=== PATIENT | female | born 1955 | race Caucasian/White ===

== ENCOUNTER 2020-06-12 21:01 | Inpatient (IN) | payer MEDICAID, SELFPAY ==
[~2020-06-12] VITALS: Ht 165.1 cm; Wt 105.2 kg
[2020-06-12] MEDS ORDERED: ALBUTEROL (0.083%) 2.5MG/3ML NEB HHN STA (21:26)
[2020-06-12] MEDS ORDERED: IPRATROPIUM BROMIDE (0.02%) 0.5MG/2.5ML NEB HHN STA (21:26)
[2020-06-12] MEDS ORDERED: MAGNESIUM 2 G PREMIX 50 ML IV STA (21:26)
[2020-06-12] MEDS ORDERED: ACETAMINOPHEN 650MG SUPP PR STA (21:26)
[2020-06-12] MEDS ORDERED: PIPERACILLIN/TAZ 3.375G PREMIX 50 ML IV ONE (21:30)
[2020-06-12] MEDS ORDERED: VANCOMYCIN 1 G PREMIX 200 ML IV ONE (21:30)
[2020-06-12] MEDS ORDERED: DEXAMETHASONE 10 MG/ML VIAL IV ONE (21:30)
[2020-06-12 22:06] LABS: BASOPHILS % 0.3 % (0.0-2.0); HEMATOCRIT. 42.7 % (36.0-48.0); HEMOGLOBIN. 14.2 g/dL (12.0-16.0); MEAN CORPUSCULAR HEMOGLOBIN 29.3 pg (28.0-32.0); MEAN PLATELET VOLUME 8.7 fl (7.4-10.4); MONOCYTES % 5.8 % (2.0-8.0); NEUTROPHILS % 83.9 % (40.0-76.0); PLATELET 290 x1000/uL (130-400); RED BLOOD CELL COUNT 4.86 mill/uL (4.2-5.4)
[2020-06-12 22:13] LABS: CHLORIDE 112 mEq/L (98-107)
[2020-06-12 22:29] LABS: D-DIMER 1.84 mg/L FEU (<0.50); INR 0.9; PROTHROMBIN TIME 9.8 sec (9.6-11.0)
[2020-06-12 22:52] LABS: FIBRINOGEN > 850 mg/dL (200-400)
[2020-06-13] MEDS ORDERED: DOCUSATE SODIUM 100MG CAPSULE PO PRN (01:15)
[2020-06-13] MEDS ORDERED: ONDANSETRON HCL 4MG/2ML INJ IV PRN (01:15)
[2020-06-13] MEDS ORDERED: GUAIFENESIN 200MG/10ML SUGAR FREE UDC PO PRN (01:15)
[2020-06-13] MEDS ORDERED: MAGNESIUM/ALUMINUM HYDROXIDE/SIMETHICONE 30ML UDC PO PRN (01:15)
[2020-06-13] MEDS ORDERED: CLONIDINE 0.1MG TABLET PO PRN (01:15)
[2020-06-13 01:16] LABS: CLARITY URINE CLOUDY (CLEAR); COLOR URINE DARK YELLOW (YELLOW); KETONES URINE TRACE (NEGATIVE); LEUKOCYTE ESTERASE URINE NEGATIVE (NEGATIVE); NITRITE URINE NEGATIVE (NEGATIVE); OCCULT BLOOD URINE NEGATIVE (NEGATIVE); PROTEIN URINE 1+ (NEGATIVE); SPECIFIC GRAVITY URINE 1.037 (1.005-1.030)
[2020-06-13] MEDS ORDERED: AZITHROMYCIN 500 MG in DEXT 5% WATER 250 ML IV SCH (03:00)
[2020-06-13] MEDS: AMLODIPINE 10MG TABLET PO SCH (09:00)
[2020-06-13] MEDS: ENOXAPARIN 40MG/0.4ML SYR SUBCUT SCH (09:37)
[2020-06-13] MEDS: CEFTRIAXONE 1 G PREMIX 50 ML IV SCH (09:37)
[2020-06-13] MEDS: DEXAMETHASONE 10 MG/ML VIAL IV SCH (12:29)
[2020-06-13 13:15] LABS: BG BASE EXCESS 0.9 mmol/L (-2.0-2.0); BG CARBOXYHEMOGLOBIN 0.4 % (0.5-1.5); BG DEOXYHEMOGLOBIN 4.6 % (0.0-5.0); BG FRACTION INSPIRED OXYGEN 100; BG HCO3 ACT 24.1 mmol/L (22.0-26.0); BG METHEMOGLOBIN 0.1 % (0.0-1.5); BG OXYGEN SATURATION 95.4 % (92.0-98.5); BG OXYHEMOGLOBIN 94.9 % (94.0-97.0); BG PCO2 34.4 mmHg (35.0-45.0); BG PH 7.464 (7.350-7.450); BG PO2 73.9 mmHg (75.0-100.0); BG SAMPLE SITE RIGHT BRACHIAL; BG TOTAL HEMOGLOBIN 13.8 g/dL (12.0-18.0); BG VENT MODE MASK - BIPAP
[2020-06-13] MEDS: FAMOTIDINE 20MG TABLET PO SCH (20:49)
[2020-06-13] MEDS: DOXYCYCLINE HYCLATE 100MG CAPSULE PO SCH (23:16)
[2020-06-14] MEDS: ALBUTEROL 6.7GM HFA INHALER ORI SCH ×5 (02:30→17:03)
[2020-06-14 06:22] LABS: HEMATOCRIT. 39.1 % (36.0-48.0); HEMOGLOBIN. 13.1 g/dL (12.0-16.0); MEAN CORPUSCULAR HEMOGLOBIN 29.5 pg (28.0-32.0); MEAN CORPUSCULAR VOLUME 87.8 fL (81.0-99.0); MEAN PLATELET VOLUME 8.3 fl (7.4-10.4); PLATELET 212 x1000/uL (130-400); RED BLOOD CELL COUNT 4.45 mill/uL (4.2-5.4); RED CELL DISTRIBUTION WIDTH 14.9 % (11.6-14.6)
[2020-06-14 06:28] LABS: CHLORIDE 116 mEq/L (98-107)
[2020-06-14] MEDS: CEFTRIAXONE 1 G PREMIX 50 ML IV SCH (08:55)
[2020-06-14] MEDS: DEXAMETHASONE 10 MG/ML VIAL IV SCH (08:55)
[2020-06-14] MEDS: AMLODIPINE 10MG TABLET PO SCH (08:56)
[2020-06-14] MEDS: DOXYCYCLINE HYCLATE 100MG CAPSULE PO SCH ×2 (08:56→22:14)
[2020-06-14] MEDS: ENOXAPARIN 40MG/0.4ML SYR SUBCUT SCH (08:57)
[2020-06-14 10:09] LABS: PLATELET ESTIMATE NORMAL
[2020-06-14] MEDS: CHOLECALCIFEROL (D3) 1000 UNIT TABLET PO SCH (15:21)
[2020-06-14] MEDS: FAMOTIDINE 20MG TABLET PO SCH (22:14)
[2020-06-15] MEDS: CEFTRIAXONE 1 G PREMIX 50 ML IV SCH (08:57)
[2020-06-15] MEDS: DOXYCYCLINE HYCLATE 100MG CAPSULE PO SCH ×2 (09:00→22:10)
[2020-06-15] MEDS: CHOLECALCIFEROL (D3) 1000 UNIT TABLET PO SCH (09:00)
[2020-06-15] MEDS: AMLODIPINE 10MG TABLET PO SCH (09:00)
[2020-06-15] MEDS: DEXAMETHASONE 10 MG/ML VIAL IV SCH (09:02)
[2020-06-15] MEDS: ENOXAPARIN 40MG/0.4ML SYR SUBCUT SCH (09:57)
[2020-06-15] MEDS: FAMOTIDINE 20MG TABLET PO SCH (21:00)
[2020-06-15] MEDS: ALBUTEROL 6.7GM HFA INHALER ORI SCH ×2 (21:11)
[2020-06-16] VITALS (92 sets, daily range): BP systolic 89–167; BP diastolic 17–109
[2020-06-16] MEDS: ALBUTEROL 6.7GM HFA INHALER ORI SCH (01:04)
[2020-06-16 08:40] LABS: BG BASE EXCESS -0.9 mmol/L (-2.0-2.0); BG CARBOXYHEMOGLOBIN 1.3 % (0.5-1.5); BG DEOXYHEMOGLOBIN 14.1 % (0.0-5.0); BG HCO3 ACT 22.4 mmol/L (22.0-26.0); BG OXYGEN SATURATION 85.7 % (92.0-98.5); BG OXYHEMOGLOBIN 84.6 % (94.0-97.0); BG PCO2 33.1 mmHg (35.0-45.0); BG PH 7.448 (7.350-7.450); BG SAMPLE SITE RIGHT RADIAL; BG TOTAL HEMOGLOBIN 14.2 g/dL (12.0-18.0); BG VENT MODE MASK - BIPAP
[2020-06-16] MEDS: CEFTRIAXONE 1,000 MG in DEXTROSE 5% WATER 50 ML IV SCH (08:51)
[2020-06-16] MEDS: ENOXAPARIN 40MG/0.4ML SYR SUBCUT SCH (08:52)
[2020-06-16] MEDS: DEXAMETHASONE 10 MG/ML VIAL IV SCH (08:52)
[2020-06-16] MEDS: CHOLECALCIFEROL (D3) 1000 UNIT TABLET PO SCH (08:53)
[2020-06-16] MEDS: DOXYCYCLINE HYCLATE 100MG CAPSULE PO SCH ×2 (08:53→20:42)
[2020-06-16] MEDS: AMLODIPINE 10MG TABLET PO SCH (08:53)
[2020-06-16] MEDS ORDERED: ENOXAPARIN 60MG/0.6ML SYR SUBCUT NR (12:45)
[2020-06-16] MEDS: PROPOFOL 10MG/ML 100ML 100 ML IV PRN ×3 (15:30→20:42)
[2020-06-16] MEDS: FENTANYL CITRATE/PF 2,500 MCG in SODIUM CHLORIDE 0.9% 200 ML IV PRN (16:58)
[2020-06-16] MEDS: MIDAZOLAM HCL 100 MG in DEXT 5% WATER 80 ML IV PRN ×2 (16:59→23:25)
[2020-06-16 17:59] LABS: BG CARBOXYHEMOGLOBIN 1.1 % (0.5-1.5); BG DEOXYHEMOGLOBIN 30.7 % (0.0-5.0); BG HCO3 ACT 14.5 mmol/L (22.0-26.0); BG METHEMOGLOBIN 0.1 % (0.0-1.5); BG OXYGEN SATURATION 68.9 % (92.0-98.5); BG OXYHEMOGLOBIN 68.1 % (94.0-97.0); BG PCO2 28.4 mmHg (35.0-45.0); BG PH 7.326 (7.350-7.450); BG PO2 40.1 mmHg (75.0-100.0); BG SAMPLE SITE RIGHT RADIAL; BG TOTAL HEMOGLOBIN 13.1 g/dL (12.0-18.0); BG VENT MODE VENT- PRVC
[2020-06-16] MEDS: FAMOTIDINE 20MG TABLET PO SCH (20:42)
[2020-06-16] MEDS: ENOXAPARIN 100MG/ML SYR SUBCUT SCH (20:42)
[2020-06-17] VITALS (91 sets, daily range): BP systolic 81–113; BP diastolic 47–83
[2020-06-17] MEDS: IPRATROPIUM/ALBUTEROL 0.5-3(2.5)MG/3ML NEB HHN SCH ×5 (01:17→20:40)
[2020-06-17] MEDS: FENTANYL CITRATE/PF 2,500 MCG in SODIUM CHLORIDE 0.9% 200 ML IV PRN ×2 (02:57→14:02)
[2020-06-17] MEDS ORDERED: SODIUM BICARBONATE 4% (2.4MEQ) 5ML VIAL IV ONE (08:52)
[2020-06-17] MEDS ORDERED: LIDOCAINE HCL 1% 20ML VIAL (Pyxis) INJ ONE (08:52)
[2020-06-17] MEDS: AMLODIPINE 10MG TABLET PO SCH (09:00)
[2020-06-17] MEDS: CEFTRIAXONE 1,000 MG in DEXTROSE 5% WATER 50 ML IV SCH (09:07)
[2020-06-17] MEDS: CHOLECALCIFEROL (D3) 1000 UNIT TABLET PO SCH (09:07)
[2020-06-17] MEDS: ENOXAPARIN 100MG/ML SYR SUBCUT SCH ×2 (09:07→20:40)
[2020-06-17] MEDS: DEXAMETHASONE 10 MG/ML VIAL IV SCH (09:07)
[2020-06-17] MEDS: DOXYCYCLINE HYCLATE 100MG CAPSULE PO SCH ×2 (09:08→20:40)
[2020-06-17] MEDS: MIDAZOLAM HCL 100 MG in DEXT 5% WATER 80 ML IV PRN ×2 (09:45→20:41)
[2020-06-17 10:17] LABS: BG BASE EXCESS -4.4 mmol/L (-2.0-2.0); BG CARBOXYHEMOGLOBIN 0.5 % (0.5-1.5); BG DEOXYHEMOGLOBIN 5.1 % (0.0-5.0); BG FRACTION INSPIRED OXYGEN 100; BG METHEMOGLOBIN 0.3 % (0.0-1.5); BG OXYGEN SATURATION 94.9 % (92.0-98.5); BG OXYHEMOGLOBIN 94.1 % (94.0-97.0); BG PCO2 51.5 mmHg (35.0-45.0); BG PH 7.267 (7.350-7.450); BG PO2 80.3 mmHg (75.0-100.0); BG SAMPLE SITE RIGHT RADIAL; BG TOTAL HEMOGLOBIN 13.4 g/dL (12.0-18.0); BG VENT MODE PRVC
[2020-06-17 15:33] LABS: CHLORIDE 117 mEq/L (98-107)
[2020-06-17 15:49] LABS: HEMATOCRIT. 38.6 % (36.0-48.0); HEMOGLOBIN. 12.4 g/dL (12.0-16.0); MEAN CORPUSCULAR HEMOGLOBIN 28.7 pg (28.0-32.0); MEAN CORPUSCULAR VOLUME 89.7 fL (81.0-99.0); MEAN PLATELET VOLUME 11.1 fl (7.4-10.4); PLATELET 83 x1000/uL (130-400); RED BLOOD CELL COUNT 4.31 mill/uL (4.2-5.4); RED CELL DISTRIBUTION WIDTH 16.4 % (11.6-14.6)
[2020-06-17 17:04] LABS: PLATELET ESTIMATE DECREASED
[2020-06-17] MEDS: FAMOTIDINE 20MG TABLET PO SCH (20:40)
[2020-06-18] VITALS (83 sets, daily range): BP systolic 87–115; BP diastolic 44–66
[2020-06-18] MEDS: IPRATROPIUM/ALBUTEROL 0.5-3(2.5)MG/3ML NEB HHN SCH ×6 (00:20→20:05)
[2020-06-18] MEDS: FENTANYL CITRATE/PF 2,500 MCG in SODIUM CHLORIDE 0.9% 200 ML IV PRN ×3 (00:36→21:03)
[2020-06-18 05:39] LABS: HEMATOCRIT. 36.6 % (36.0-48.0); MEAN CORPUSCULAR HEMOGLOBIN 29.2 pg (28.0-32.0); MEAN CORPUSCULAR VOLUME 89.2 fL (81.0-99.0); MEAN PLATELET VOLUME 11.8 fl (7.4-10.4); PLATELET 123 x1000/uL (130-400); RED BLOOD CELL COUNT 4.11 mill/uL (4.2-5.4); RED CELL DISTRIBUTION WIDTH 15.9 % (11.6-14.6)
[2020-06-18] MEDS: MIDAZOLAM HCL 100 MG in DEXT 5% WATER 80 ML IV PRN ×2 (06:24→15:13)
[2020-06-18 08:33] LABS: BG BASE EXCESS -3.6 mmol/L (-2.0-2.0); BG CARBOXYHEMOGLOBIN 0.3 % (0.5-1.5); BG FRACTION INSPIRED OXYGEN 100; BG HCO3 ACT 23.3 mmol/L (22.0-26.0); BG METHEMOGLOBIN 0.3 % (0.0-1.5); BG OXYHEMOGLOBIN 98.4 % (94.0-97.0); BG PCO2 49.7 mmHg (35.0-45.0); BG PH 7.289 (7.350-7.450); BG SAMPLE SITE RIGHT RADIAL; BG TOTAL HEMOGLOBIN 12.3 g/dL (12.0-18.0); BG VENT MODE PRVC
[2020-06-18] MEDS: AMLODIPINE 10MG TABLET PO SCH (09:00)
[2020-06-18] MEDS: DEXAMETHASONE 10 MG/ML VIAL IV SCH (09:23)
[2020-06-18] MEDS: ENOXAPARIN 100MG/ML SYR SUBCUT SCH ×2 (09:24→21:02)
[2020-06-18] MEDS: DOXYCYCLINE HYCLATE 100MG CAPSULE PO SCH (09:24)
[2020-06-18] MEDS: CEFTRIAXONE 1,000 MG in DEXTROSE 5% WATER 50 ML IV SCH (09:24)
[2020-06-18] MEDS: CHOLECALCIFEROL (D3) 1000 UNIT TABLET PO SCH (09:24)
[2020-06-18] MEDS: ACETAMINOPHEN 325MG TABLET PO PRN (09:44)
[2020-06-18 14:01] LABS: PLATELET ESTIMATE SLIGHTLY DECREASED
[2020-06-18] MEDS: LACTULOSE 20G/30ML UDC PO PRN (15:12)
[2020-06-18] MEDS: ACETAMINOPHEN 650MG/20.3ML UDC PO PRN (15:12)
[2020-06-18] MEDS: FAMOTIDINE 20MG TABLET PO SCH (21:01)
[2020-06-19] VITALS (52 sets, daily range): BP systolic 95–127; BP diastolic 45–102
[2020-06-19] MEDS: MIDAZOLAM HCL 100 MG in DEXT 5% WATER 80 ML IV PRN (04:23)
[2020-06-19 05:53] LABS: HEMATOCRIT 36.8 % (36.0-48.0); HEMOGLOBIN 11.8 g/dL (12.0-16.0); MEAN CORPUSCULAR VOLUME 90.5 fL (81.0-99.0); PLATELET 148 x1000/uL (130-400); RED BLOOD CELL COUNT 4.06 mill/uL (4.2-5.4)
[2020-06-19 06:06] LABS: CHLORIDE 124 mEq/L (98-107)
[2020-06-19] MEDS ORDERED: DEXTROSE 50% WATER 50ML SYRINGE IV PRN (07:15)
[2020-06-19] MEDS: FENTANYL CITRATE/PF 2,500 MCG in SODIUM CHLORIDE 0.9% 200 ML IV PRN (07:39)
[2020-06-19] MEDS: INSULIN LISPRO 100 UNITS/ML SUBCUT SCH ×3 (07:48→17:37)
[2020-06-19] MEDS: IPRATROPIUM/ALBUTEROL 0.5-3(2.5)MG/3ML NEB HHN SCH ×4 (08:35→20:36)
[2020-06-19] MEDS: AMLODIPINE 10MG TABLET PO SCH (09:00)
[2020-06-19] MEDS: DEXAMETHASONE 10 MG/ML VIAL IV SCH (09:21)
[2020-06-19] MEDS: CHOLECALCIFEROL (D3) 1000 UNIT TABLET PO SCH (09:21)
[2020-06-19] MEDS: DOCUSATE SODIUM SUGAR FREE 100MG/10ML UDC NG SCH (09:21)
[2020-06-19] MEDS: INSULIN GLARGINE UD 100 UNITS/ML SYR SUBCUT SCH (09:22)
[2020-06-19] MEDS: ENOXAPARIN 100MG/ML SYR SUBCUT SCH ×2 (09:22→21:11)
[2020-06-19 09:57] LABS: BG BASE EXCESS -2.1 mmol/L (-2.0-2.0); BG CARBOXYHEMOGLOBIN 0.4 % (0.5-1.5); BG DEOXYHEMOGLOBIN 5.4 % (0.0-5.0); BG FRACTION INSPIRED OXYGEN 60; BG HCO3 ACT 23.8 mmol/L (22.0-26.0); BG METHEMOGLOBIN 0.3 % (0.0-1.5); BG OXYGEN SATURATION 94.6 % (92.0-98.5); BG OXYHEMOGLOBIN 93.9 % (94.0-97.0); BG PCO2 45.4 mmHg (35.0-45.0); BG PH 7.337 (7.350-7.450); BG PO2 74.8 mmHg (75.0-100.0); BG SAMPLE SITE RIGHT RADIAL; BG TOTAL HEMOGLOBIN 11.8 g/dL (12.0-18.0); BG VENT MODE VENT - PRVC
[2020-06-19] MEDS ORDERED: FENTANYL CITRATE/PF 2,500 MCG in SODIUM CHLORIDE 0.9% 200 ML IV PRN (11:10)
[2020-06-19] MEDS ORDERED: MIDAZOLAM HCL IV PRN (11:10)
[2020-06-19] MEDS ORDERED: SODIUM CHLORIDE 0.45% IV PRN ×2 (11:10→11:23)
[2020-06-19] MEDS ORDERED: FENTANYL CITRATE IV PRN (11:23)
[2020-06-19] MEDS ORDERED: INSULIN LISPRO 100 UNITS/ML SUBCUT SCH (12:00)
[2020-06-19] MEDS: BLOOD SUGAR DIAGNOSTIC STRIP TEST SCH ×2 (12:29→17:38)
[2020-06-19] MEDS: FAMOTIDINE 20MG TABLET PO SCH (21:11)
[2020-06-20] VITALS (94 sets, daily range): BP systolic 90–154; BP diastolic 46–106
[2020-06-20] MEDS: IPRATROPIUM/ALBUTEROL 0.5-3(2.5)MG/3ML NEB HHN SCH ×6 (00:34→21:52)
[2020-06-20] MEDS: BLOOD SUGAR DIAGNOSTIC STRIP TEST SCH ×4 (00:41→18:00)
[2020-06-20] MEDS: INSULIN LISPRO 100 UNITS/ML SUBCUT SCH ×4 (00:47→18:24)
[2020-06-20 05:17] LABS: HEMATOCRIT. 37.3 % (36.0-48.0); MEAN CORPUSCULAR HEMOGLOBIN 28.8 pg (28.0-32.0); MEAN CORPUSCULAR VOLUME 89.5 fL (81.0-99.0); MEAN PLATELET VOLUME 10.9 fl (7.4-10.4); PLATELET 189 x1000/uL (130-400); RED BLOOD CELL COUNT 4.17 mill/uL (4.2-5.4); RED CELL DISTRIBUTION WIDTH 15.9 % (11.6-14.6)
[2020-06-20 05:20] LABS: CHLORIDE 132 mEq/L (98-107)
[2020-06-20 05:31] LABS: PHOSPHORUS 1.8 mg/dL (2.5-4.9)
[2020-06-20] MEDS: DEXTROSE 5% WATER 1,000 ML IV SCH (07:55)
[2020-06-20] MEDS: AMLODIPINE 10MG TABLET PO SCH (09:00)
[2020-06-20] MEDS: CHOLECALCIFEROL (D3) 1000 UNIT TABLET PO SCH (09:37)
[2020-06-20] MEDS: DOCUSATE SODIUM SUGAR FREE 100MG/10ML UDC NG SCH (09:37)
[2020-06-20] MEDS: DEXAMETHASONE 10 MG/ML VIAL IV SCH (09:37)
[2020-06-20] MEDS: ENOXAPARIN 80MG/0.8ML SYR SUBCUT SCH ×2 (09:38→21:52)
[2020-06-20 10:14] LABS: BG BASE EXCESS 1.6 mmol/L (-2.0-2.0); BG CARBOXYHEMOGLOBIN 0.9 % (0.5-1.5); BG DEOXYHEMOGLOBIN 3.8 % (0.0-5.0); BG FRACTION INSPIRED OXYGEN 60; BG METHEMOGLOBIN 0.3 % (0.0-1.5); BG OXYGEN SATURATION 96.2 % (92.0-98.5); BG PCO2 45.6 mmHg (35.0-45.0); BG PO2 83.4 mmHg (75.0-100.0); BG SAMPLE SITE RIGHT RADIAL; BG TOTAL HEMOGLOBIN 13.1 g/dL (12.0-18.0); BG VENT MODE VENT - PRVC
[2020-06-20] MEDS: POTASSIUM-SODIUM PHOSPHATE POWDER PACKET PO SCH ×2 (10:59→16:09)
[2020-06-20] MEDS: INSULIN GLARGINE UD 100 UNITS/ML SYR SUBCUT SCH (11:01)
[2020-06-20 11:15] LABS: PLATELET ESTIMATE NORMAL
[2020-06-20] MEDS: ACETAMINOPHEN 650MG/20.3ML UDC PO PRN (16:06)
[2020-06-20] MEDS: FENTANYL CITRATE/PF 2,500 MCG in DEXT 5% WATER 200 ML IV PRN (19:03)
[2020-06-20] MEDS: FAMOTIDINE 20MG TABLET PO SCH (21:52)
[2020-06-20] MEDS: MIDAZOLAM HCL 100 MG in DEXT 5% WATER 100 ML IV PRN (21:54)
[2020-06-21] VITALS (93 sets, daily range): BP systolic 90–132; BP diastolic 53–78
[2020-06-21] MEDS: BLOOD SUGAR DIAGNOSTIC STRIP TEST SCH ×4 (00:12→18:11)
[2020-06-21] MEDS: INSULIN LISPRO 100 UNITS/ML SUBCUT SCH ×4 (00:16→18:26)
[2020-06-21] MEDS: DEXTROSE 5% WATER 1,000 ML IV SCH ×2 (00:17→16:52)
[2020-06-21] MEDS: IPRATROPIUM/ALBUTEROL 0.5-3(2.5)MG/3ML NEB HHN SCH ×7 (00:58→21:10)
[2020-06-21] MEDS: LACTULOSE 20G/30ML UDC PO PRN (03:02)
[2020-06-21] MEDS: FENTANYL CITRATE/PF 2,500 MCG in DEXT 5% WATER 200 ML IV PRN ×2 (04:45→14:18)
[2020-06-21 05:33] LABS: HEMATOCRIT. 37.8 % (36.0-48.0); HEMOGLOBIN. 11.7 g/dL (12.0-16.0); MEAN CORPUSCULAR VOLUME 90.6 fL (81.0-99.0); MEAN PLATELET VOLUME 11.2 fl (7.4-10.4); PLATELET 218 x1000/uL (130-400); RED BLOOD CELL COUNT 4.18 mill/uL (4.2-5.4); RED CELL DISTRIBUTION WIDTH 16.1 % (11.6-14.6)
[2020-06-21 05:36] LABS: CHLORIDE 129 mEq/L (98-107)
[2020-06-21 05:40] LABS: PHOSPHORUS 2.5 mg/dL (2.5-4.9)
[2020-06-21] MEDS: ACETAMINOPHEN 650MG/20.3ML UDC PO PRN ×2 (06:40→13:31)
[2020-06-21 09:08] LABS: PLATELET ESTIMATE NORMAL
[2020-06-21 09:56] LABS: BG BASE EXCESS -1.6 mmol/L (-2.0-2.0); BG CARBOXYHEMOGLOBIN 0.5 % (0.5-1.5); BG DEOXYHEMOGLOBIN 4.8 % (0.0-5.0); BG FRACTION INSPIRED OXYGEN 60; BG HCO3 ACT 23.9 mmol/L (22.0-26.0); BG METHEMOGLOBIN 0.3 % (0.0-1.5); BG OXYGEN SATURATION 95.2 % (92.0-98.5); BG OXYHEMOGLOBIN 94.4 % (94.0-97.0); BG PCO2 43.5 mmHg (35.0-45.0); BG PH 7.358 (7.350-7.450); BG PO2 78.5 mmHg (75.0-100.0); BG SAMPLE SITE LEFT RADIAL; BG TOTAL HEMOGLOBIN 12.7 g/dL (12.0-18.0); BG TOTAL RESPIRATORY RATE 34 b/min; BG VENT MODE VENT- PRVC
[2020-06-21] MEDS: DEXAMETHASONE 10 MG/ML VIAL IV SCH (10:21)
[2020-06-21] MEDS: CHOLECALCIFEROL (D3) 1000 UNIT TABLET PO SCH (10:22)
[2020-06-21] MEDS: AMLODIPINE 10MG TABLET PO SCH (10:22)
[2020-06-21] MEDS: DOCUSATE SODIUM SUGAR FREE 100MG/10ML UDC NG SCH (10:22)
[2020-06-21] MEDS: ENOXAPARIN 80MG/0.8ML SYR SUBCUT SCH (10:22)
[2020-06-21] MEDS: POTASSIUM-SODIUM PHOSPHATE POWDER PACKET PO SCH ×2 (10:22→16:52)
[2020-06-21] MEDS: INSULIN GLARGINE UD 100 UNITS/ML SYR SUBCUT SCH (10:25)
[2020-06-21] MEDS ORDERED: ENOXAPARIN 100MG/ML SYR SUBCUT SCH (16:15)
[2020-06-21] MEDS ORDERED: VANCOMYCIN 1500MG in DEXTROSE 5% WATER 250ML IV SCH (17:30)
[2020-06-21] MEDS: PIPERACILLIN/TAZOBACTAM 3.375 G in DEXT 5% WATER 100 ML IV SCH (17:40)
[2020-06-21] MEDS: MIDAZOLAM HCL 100 MG in DEXT 5% WATER 100 ML IV PRN (17:40)
[2020-06-21] MEDS: FAMOTIDINE 20MG TABLET PO SCH (22:18)
[2020-06-21] MEDS: ENOXAPARIN 100MG/ML SYR SUBCUT SCH (22:19)
[2020-06-22] VITALS (96 sets, daily range): BP systolic 84–148; BP diastolic 43–77
[2020-06-22] MEDS: BLOOD SUGAR DIAGNOSTIC STRIP TEST SCH ×4 (00:32→18:43)
[2020-06-22] MEDS: PIPERACILLIN/TAZOBACTAM 3.375 G in DEXT 5% WATER 100 ML IV SCH ×5 (00:40→23:25)
[2020-06-22] MEDS: INSULIN LISPRO 100 UNITS/ML SUBCUT SCH ×4 (00:42→18:00)
[2020-06-22] MEDS: FENTANYL CITRATE/PF 2,500 MCG in DEXT 5% WATER 200 ML IV PRN ×3 (00:49→22:54)
[2020-06-22] MEDS: IPRATROPIUM/ALBUTEROL 0.5-3(2.5)MG/3ML NEB HHN SCH ×5 (04:41→20:11)
[2020-06-22 06:50] LABS: BASOPHILS % 0.3 % (0.0-2.0); EOSINOPHILS % 0.4 % (0.0-5.0); HEMATOCRIT. 36.7 % (36.0-48.0); HEMOGLOBIN. 11.7 g/dL (12.0-16.0); MEAN CORPUSCULAR HEMOGLOBIN 28.6 pg (28.0-32.0); MEAN CORPUSCULAR VOLUME 89.9 fL (81.0-99.0); MEAN PLATELET VOLUME 11.1 fl (7.4-10.4); MONOCYTES % 1.8 % (2.0-8.0); NEUTROPHILS % 88.5 % (40.0-76.0); PLATELET 216 x1000/uL (130-400); RED BLOOD CELL COUNT 4.08 mill/uL (4.2-5.4); RED CELL DISTRIBUTION WIDTH 15.4 % (11.6-14.6)
[2020-06-22 06:52] LABS: CHLORIDE 123 mEq/L (98-107)
[2020-06-22 07:03] LABS: CREATINE KINASE 411 IU/L (26-192)
[2020-06-22] MEDS: POTASSIUM-SODIUM PHOSPHATE POWDER PACKET PO SCH ×2 (08:54→17:00)
[2020-06-22] MEDS: AMLODIPINE 10MG TABLET PO SCH (08:54)
[2020-06-22] MEDS: DOCUSATE SODIUM SUGAR FREE 100MG/10ML UDC NG SCH (08:54)
[2020-06-22] MEDS: ENOXAPARIN 100MG/ML SYR SUBCUT SCH ×2 (08:55→22:27)
[2020-06-22] MEDS: DEXAMETHASONE 10 MG/ML VIAL IV SCH (08:55)
[2020-06-22] MEDS: CHOLECALCIFEROL (D3) 1000 UNIT TABLET PO SCH (08:55)
[2020-06-22 09:02] LABS: BG CARBOXYHEMOGLOBIN 0.7 % (0.5-1.5); BG DEOXYHEMOGLOBIN 9.7 % (0.0-5.0); BG FRACTION INSPIRED OXYGEN 60; BG HCO3 ACT 24.5 mmol/L (22.0-26.0); BG METHEMOGLOBIN 0.1 % (0.0-1.5); BG OXYGEN SATURATION 90.2 % (92.0-98.5); BG OXYHEMOGLOBIN 89.5 % (94.0-97.0); BG PCO2 39.8 mmHg (35.0-45.0); BG PH 7.408 (7.350-7.450); BG PO2 58.5 mmHg (75.0-100.0); BG SAMPLE SITE RIGHT RADIAL; BG TOTAL HEMOGLOBIN 11.7 g/dL (12.0-18.0); BG VENT MODE PRVC
[2020-06-22] MEDS: INSULIN GLARGINE UD 100 UNITS/ML SYR SUBCUT SCH ×2 (10:11→22:28)
[2020-06-22] MEDS: VANCOMYCIN 1 G PREMIX 200 ML IV SCH (11:05)
[2020-06-22] MEDS: NOREPINEPHRINE 32 MG in DEXT 5% WATER 218 ML IV PRN (16:03)
[2020-06-22] MEDS: MIDAZOLAM HCL 100 MG in DEXT 5% WATER 100 ML IV PRN (16:06)
[2020-06-22] MEDS ORDERED: INSULIN LISPRO 100 UNITS/ML SUBCUT NR (19:00)
[2020-06-22] MEDS ORDERED: INSULIN GLARGINE UD 100 UNITS/ML SYR SUBCUT SCH (22:00)
[2020-06-22] MEDS: FAMOTIDINE 20MG TABLET PO SCH (22:27)
[2020-06-23] VITALS (97 sets, daily range): BP systolic 83–194; BP diastolic 45–95
[2020-06-23] MEDS: IPRATROPIUM/ALBUTEROL 0.5-3(2.5)MG/3ML NEB HHN SCH ×6 (00:01→20:36)
[2020-06-23] MEDS: BLOOD SUGAR DIAGNOSTIC STRIP TEST SCH ×4 (00:09→17:53)
[2020-06-23] MEDS: INSULIN LISPRO 100 UNITS/ML SUBCUT SCH ×4 (00:14→17:58)
[2020-06-23] MEDS: DEXTROSE 5% WATER 1,000 ML IV SCH ×2 (02:40→18:20)
[2020-06-23] MEDS: VANCOMYCIN 1 G PREMIX 200 ML IV SCH (06:01)
[2020-06-23] MEDS: PIPERACILLIN/TAZOBACTAM 3.375 G in DEXT 5% WATER 100 ML IV SCH ×3 (06:02→17:58)
[2020-06-23 08:58] LABS: BG BASE EXCESS 2.4 mmol/L (-2.0-2.0); BG CARBOXYHEMOGLOBIN 0.2 % (0.5-1.5); BG DEOXYHEMOGLOBIN 5.6 % (0.0-5.0); BG FRACTION INSPIRED OXYGEN 60; BG HCO3 ACT 27.6 mmol/L (22.0-26.0); BG METHEMOGLOBIN 0.2 % (0.0-1.5); BG OXYGEN SATURATION 94.4 % (92.0-98.5); BG PH 7.405 (7.350-7.450); BG PO2 74.3 mmHg (75.0-100.0); BG SAMPLE SITE RIGHT RADIAL; BG VENT MODE PRVC
[2020-06-23] MEDS: AMLODIPINE 10MG TABLET PO SCH (09:47)
[2020-06-23] MEDS: POTASSIUM-SODIUM PHOSPHATE POWDER PACKET PO SCH ×2 (09:52→17:59)
[2020-06-23] MEDS: CHOLECALCIFEROL (D3) 1000 UNIT TABLET PO SCH (09:52)
[2020-06-23] MEDS: ENOXAPARIN 100MG/ML SYR SUBCUT SCH ×2 (09:52→22:20)
[2020-06-23] MEDS: DOCUSATE SODIUM SUGAR FREE 100MG/10ML UDC NG SCH (09:52)
[2020-06-23] MEDS: INSULIN GLARGINE UD 100 UNITS/ML SYR SUBCUT SCH ×2 (11:44→22:21)
[2020-06-23] MEDS: MIDAZOLAM HCL 100 MG in DEXT 5% WATER 100 ML IV PRN (12:04)
[2020-06-23 13:32] LABS: CHLORIDE 112 mEq/L (98-107)
[2020-06-23 13:48] LABS: CLARITY URINE TURBID (CLEAR); COLOR URINE ORANGE (YELLOW); KETONES URINE NEGATIVE (NEGATIVE); LEUKOCYTE ESTERASE URINE 2+ (NEGATIVE); NITRITE URINE NEGATIVE (NEGATIVE); OCCULT BLOOD URINE 3+ (NEGATIVE); PROTEIN URINE 1+ (NEGATIVE); SPECIFIC GRAVITY URINE 1.022 (1.005-1.030)
[2020-06-23] MEDS ORDERED: FLUCONAZOLE 100MG TABLET PO SCH (15:30)
[2020-06-23 16:59] LABS: HEMATOCRIT. 36.3 % (36.0-48.0); HEMOGLOBIN. 11.5 g/dL (12.0-16.0); MEAN CORPUSCULAR HEMOGLOBIN 28.5 pg (28.0-32.0); MEAN PLATELET VOLUME 12.1 fl (7.4-10.4); PLATELET 251 x1000/uL (130-400); RED BLOOD CELL COUNT 4.04 mill/uL (4.2-5.4); RED CELL DISTRIBUTION WIDTH 15.4 % (11.6-14.6)
[2020-06-23] MEDS: FENTANYL CITRATE/PF 2,500 MCG in DEXT 5% WATER 200 ML IV PRN (17:47)
[2020-06-23 21:57] LABS: PLATELET ESTIMATE NORMAL
[2020-06-23] MEDS: FAMOTIDINE 20MG TABLET PO SCH (22:19)
[2020-06-24] VITALS (89 sets, daily range): BP systolic 82–197; BP diastolic 45–101
[2020-06-24] MEDS: IPRATROPIUM/ALBUTEROL 0.5-3(2.5)MG/3ML NEB HHN SCH ×6 (00:44→20:40)
[2020-06-24] MEDS: PIPERACILLIN/TAZOBACTAM 3.375 G in DEXT 5% WATER 100 ML IV SCH ×3 (01:13→12:14)
[2020-06-24] MEDS: VANCOMYCIN 1 G PREMIX 200 ML IV SCH (01:16)
[2020-06-24] MEDS: INSULIN LISPRO 100 UNITS/ML SUBCUT SCH ×4 (01:47→18:44)
[2020-06-24] MEDS: FENTANYL CITRATE/PF 2,500 MCG in DEXT 5% WATER 200 ML IV PRN ×2 (04:00→15:31)
[2020-06-24 05:46] LABS: CHLORIDE 105 mEq/L (98-107)
[2020-06-24] MEDS: BLOOD SUGAR DIAGNOSTIC STRIP TEST SCH ×4 (06:00→18:35)
[2020-06-24] MEDS: MIDAZOLAM HCL 100 MG in DEXT 5% WATER 100 ML IV PRN (08:15)
[2020-06-24] MEDS: AMLODIPINE 10MG TABLET PO SCH (09:00)
[2020-06-24] MEDS: DOCUSATE SODIUM SUGAR FREE 100MG/10ML UDC NG SCH (10:06)
[2020-06-24] MEDS: POTASSIUM-SODIUM PHOSPHATE POWDER PACKET PO SCH ×2 (10:06→17:03)
[2020-06-24] MEDS: ENOXAPARIN 100MG/ML SYR SUBCUT SCH ×2 (10:06→21:37)
[2020-06-24] MEDS: INSULIN GLARGINE UD 100 UNITS/ML SYR SUBCUT SCH ×2 (10:07→21:39)
[2020-06-24] MEDS: ACETAMINOPHEN 325MG TABLET PO PRN ×2 (11:05→21:34)
[2020-06-24] MEDS: FLUCONAZOLE 40 MG/ML ORAL SYRINGE NG SCH (11:05)
[2020-06-24] MEDS: VANCOMYCIN 750 MG PREMIX 150 ML IV SCH (12:14)
[2020-06-24] MEDS: METOCLOPRAMIDE HCL 10MG/2ML VIAL IV SCH ×2 (12:15→17:03)
[2020-06-24] MEDS: CHOLECALCIFEROL (D3) 1000 UNIT TABLET PO SCH (12:15)
[2020-06-24 12:25] LABS: BG BASE EXCESS 4.1 mmol/L (-2.0-2.0); BG CARBOXYHEMOGLOBIN 0.6 % (0.5-1.5); BG DEOXYHEMOGLOBIN 8.6 % (0.0-5.0); BG FRACTION INSPIRED OXYGEN 60; BG HCO3 ACT 28.1 mmol/L (22.0-26.0); BG OXYGEN SATURATION 91.3 % (92.0-98.5); BG OXYHEMOGLOBIN 90.8 % (94.0-97.0); BG PCO2 39.8 mmHg (35.0-45.0); BG PH 7.466 (7.350-7.450); BG PO2 55.1 mmHg (75.0-100.0); BG SAMPLE SITE RIGHT RADIAL; BG VENT MODE PRVC
[2020-06-24] MEDS: MEROPENEM 1,000 MG in SODIUM CHLORIDE 0.9% 100 ML IV SCH ×2 (15:56→21:35)
[2020-06-24] MEDS: FAMOTIDINE 20MG TABLET PO SCH (21:34)
[2020-06-25] VITALS (99 sets, daily range): BP systolic 67–159; BP diastolic 36–83
[2020-06-25] MEDS: BLOOD SUGAR DIAGNOSTIC STRIP TEST SCH ×4 (00:11→18:00)
[2020-06-25] MEDS: METOCLOPRAMIDE HCL 10MG/2ML VIAL IV SCH ×3 (00:17→18:11)
[2020-06-25] MEDS: VANCOMYCIN 750 MG PREMIX 150 ML IV SCH ×2 (00:18→14:32)
[2020-06-25] MEDS: INSULIN LISPRO 100 UNITS/ML SUBCUT SCH ×4 (00:18→18:00)
[2020-06-25] MEDS: LACTULOSE 20G/30ML UDC PO PRN ×2 (00:19→11:49)
[2020-06-25] MEDS: IPRATROPIUM/ALBUTEROL 0.5-3(2.5)MG/3ML NEB HHN SCH ×6 (00:38→21:00)
[2020-06-25] MEDS: MIDAZOLAM HCL 100 MG in DEXT 5% WATER 100 ML IV PRN ×3 (03:16→21:10)
[2020-06-25] MEDS: FENTANYL CITRATE/PF 2,500 MCG in DEXT 5% WATER 200 ML IV PRN ×3 (04:52→21:36)
[2020-06-25 06:02] LABS: HEMATOCRIT. 33.3 % (36.0-48.0); HEMOGLOBIN. 11.1 g/dL (12.0-16.0); MEAN CORPUSCULAR HEMOGLOBIN 29.5 pg (28.0-32.0); MEAN CORPUSCULAR VOLUME 88.3 fL (81.0-99.0); MEAN PLATELET VOLUME 11.4 fl (7.4-10.4); PLATELET 188 x1000/uL (130-400); RED BLOOD CELL COUNT 3.77 mill/uL (4.2-5.4); RED CELL DISTRIBUTION WIDTH 14.4 % (11.6-14.6)
[2020-06-25 06:03] LABS: CHLORIDE 106 mEq/L (98-107)
[2020-06-25] MEDS: MEROPENEM 1,000 MG in SODIUM CHLORIDE 0.9% 100 ML IV SCH ×3 (06:36→21:09)
[2020-06-25 08:00] LABS: BG BASE EXCESS 5.2 mmol/L (-2.0-2.0); BG CARBOXYHEMOGLOBIN 0.4 % (0.5-1.5); BG DEOXYHEMOGLOBIN 7.9 % (0.0-5.0); BG HCO3 ACT 32.3 mmol/L (22.0-26.0); BG METHEMOGLOBIN 0.1 % (0.0-1.5); BG OXYGEN SATURATION 92.1 % (92.0-98.5); BG OXYHEMOGLOBIN 91.6 % (94.0-97.0); BG PH 7.349 (7.350-7.450); BG PO2 66.4 mmHg (75.0-100.0); BG SAMPLE SITE RIGHT RADIAL; BG TOTAL HEMOGLOBIN 11.9 g/dL (12.0-18.0); BG VENT MODE VENT- PRVC
[2020-06-25] MEDS: CHOLECALCIFEROL (D3) 1000 UNIT TABLET PO SCH (08:21)
[2020-06-25] MEDS: POTASSIUM-SODIUM PHOSPHATE POWDER PACKET PO SCH ×2 (08:21→18:11)
[2020-06-25] MEDS: DOCUSATE SODIUM SUGAR FREE 100MG/10ML UDC NG SCH (08:21)
[2020-06-25] MEDS: FLUCONAZOLE 40 MG/ML ORAL SYRINGE NG SCH (08:22)
[2020-06-25] MEDS: ENOXAPARIN 100MG/ML SYR SUBCUT SCH ×2 (08:22→21:08)
[2020-06-25] MEDS: AMLODIPINE 10MG TABLET PO SCH (08:22)
[2020-06-25] MEDS: INSULIN GLARGINE UD 100 UNITS/ML SYR SUBCUT SCH (09:44)
[2020-06-25 18:05] LABS: PLATELET ESTIMATE NORMAL
[2020-06-25] MEDS: FAMOTIDINE 20MG TABLET PO SCH (21:08)
[2020-06-25] MEDS: ACETAMINOPHEN 650MG/20.3ML UDC PO PRN (21:09)
[2020-06-26] VITALS (94 sets, daily range): BP systolic 72–146; BP diastolic 40–81
[2020-06-26] MEDS: BLOOD SUGAR DIAGNOSTIC STRIP TEST SCH ×4 (00:07→17:16)
[2020-06-26] MEDS: METOCLOPRAMIDE HCL 10MG/2ML VIAL IV SCH ×4 (00:08→17:16)
[2020-06-26] MEDS: VANCOMYCIN 750 MG PREMIX 150 ML IV SCH ×2 (00:08→12:43)
[2020-06-26] MEDS: INSULIN GLARGINE UD 100 UNITS/ML SYR SUBCUT SCH ×3 (00:10→23:39)
[2020-06-26] MEDS: IPRATROPIUM/ALBUTEROL 0.5-3(2.5)MG/3ML NEB HHN SCH ×6 (00:35→20:20)
[2020-06-26] MEDS: INSULIN LISPRO 100 UNITS/ML SUBCUT SCH ×4 (05:29→17:16)
[2020-06-26] MEDS: FENTANYL CITRATE/PF 2,500 MCG in DEXT 5% WATER 200 ML IV PRN ×3 (05:30→21:01)
[2020-06-26] MEDS: MIDAZOLAM HCL 100 MG in DEXT 5% WATER 100 ML IV PRN ×2 (05:31→13:49)
[2020-06-26] MEDS: MEROPENEM 1,000 MG in SODIUM CHLORIDE 0.9% 100 ML IV SCH (05:32)
[2020-06-26] MEDS: NOREPINEPHRINE 32 MG in DEXT 5% WATER 218 ML IV PRN (06:14)
[2020-06-26 06:25] LABS: HEMOGLOBIN. 10.7 g/dL (12.0-16.0); MEAN CORPUSCULAR HEMOGLOBIN 28.8 pg (28.0-32.0); MEAN CORPUSCULAR VOLUME 88.9 fL (81.0-99.0); MEAN PLATELET VOLUME 11.3 fl (7.4-10.4); PLATELET 212 x1000/uL (130-400); RED BLOOD CELL COUNT 3.72 mill/uL (4.2-5.4)
[2020-06-26 06:28] LABS: CHLORIDE 106 mEq/L (98-107)
[2020-06-26] MEDS: DOCUSATE SODIUM SUGAR FREE 100MG/10ML UDC NG SCH (08:20)
[2020-06-26] MEDS: CHOLECALCIFEROL (D3) 1000 UNIT TABLET PO SCH (08:20)
[2020-06-26] MEDS: ENOXAPARIN 100MG/ML SYR SUBCUT SCH ×2 (08:21→21:23)
[2020-06-26] MEDS: FLUCONAZOLE 40 MG/ML ORAL SYRINGE NG SCH (08:22)
[2020-06-26] MEDS: POTASSIUM-SODIUM PHOSPHATE POWDER PACKET PO SCH ×2 (08:23→16:24)
[2020-06-26] MEDS: AMLODIPINE 10MG TABLET PO SCH (08:36)
[2020-06-26 10:51] LABS: BG BASE EXCESS 3.5 mmol/L (-2.0-2.0); BG CARBOXYHEMOGLOBIN 0.3 % (0.5-1.5); BG DEOXYHEMOGLOBIN 6.1 % (0.0-5.0); BG FRACTION INSPIRED OXYGEN 85; BG HCO3 ACT 29.8 mmol/L (22.0-26.0); BG METHEMOGLOBIN 0.3 % (0.0-1.5); BG OXYGEN SATURATION 93.9 % (92.0-98.5); BG OXYHEMOGLOBIN 93.3 % (94.0-97.0); BG PCO2 53.3 mmHg (35.0-45.0); BG PH 7.365 (7.350-7.450); BG PO2 71.4 mmHg (75.0-100.0); BG SAMPLE SITE RIGHT RADIAL; BG TOTAL HEMOGLOBIN 10.9 g/dL (12.0-18.0); BG VENT MODE VENT - PRVC
[2020-06-26 11:55] LABS: PHOSPHORUS 1.3 mg/dL (2.5-4.9)
[2020-06-26 15:16] LABS: NUCLEATED RED BLOOD CELLS 1 /100 WBC; PLATELET ESTIMATE NORMAL
[2020-06-26] MEDS: CEFEPIME 1,000 MG in DEXTROSE 5% WATER 50 ML IV SCH (16:23)
[2020-06-26] MEDS: ACETAMINOPHEN 650MG/20.3ML UDC PO PRN (16:24)
[2020-06-26] MEDS: FAMOTIDINE 20MG TABLET PO SCH (21:23)
[2020-06-27] VITALS (94 sets, daily range): BP systolic 79–198; BP diastolic 48–107
[2020-06-27] MEDS: METOCLOPRAMIDE HCL 10MG/2ML VIAL IV SCH ×4 (00:16→17:50)
[2020-06-27] MEDS: IPRATROPIUM/ALBUTEROL 0.5-3(2.5)MG/3ML NEB HHN SCH ×6 (00:25→22:03)
[2020-06-27] MEDS: BLOOD SUGAR DIAGNOSTIC STRIP TEST SCH ×4 (00:35→17:50)
[2020-06-27] MEDS: MIDAZOLAM HCL 100 MG in DEXT 5% WATER 100 ML IV PRN ×3 (02:06→18:43)
[2020-06-27] MEDS: FENTANYL CITRATE/PF 2,500 MCG in DEXT 5% WATER 200 ML IV PRN ×3 (04:03→17:51)
[2020-06-27] MEDS: ACETAMINOPHEN 650MG/20.3ML UDC PO PRN ×3 (04:48→17:50)
[2020-06-27] MEDS: CEFEPIME 1,000 MG in DEXTROSE 5% WATER 50 ML IV SCH ×2 (05:39→18:42)
[2020-06-27 05:55] LABS: CHLORIDE 103 mEq/L (98-107)
[2020-06-27 06:02] LABS: CREATINE KINASE 246 IU/L (26-192)
[2020-06-27] MEDS: INSULIN LISPRO 100 UNITS/ML SUBCUT SCH ×4 (06:30→18:04)
[2020-06-27 08:35] LABS: BG CARBOXYHEMOGLOBIN 0.3 % (0.5-1.5); BG FRACTION INSPIRED OXYGEN 90; BG HCO3 ACT 31.4 mmol/L (22.0-26.0); BG METHEMOGLOBIN 0.3 % (0.0-1.5); BG OXYHEMOGLOBIN 92.4 % (94.0-97.0); BG PCO2 62.3 mmHg (35.0-45.0); BG PO2 67.7 mmHg (75.0-100.0); BG SAMPLE SITE RIGHT RADIAL; BG TOTAL HEMOGLOBIN 10.8 g/dL (12.0-18.0); BG VENT MODE PRVC
[2020-06-27] MEDS: POTASSIUM-SODIUM PHOSPHATE POWDER PACKET PO SCH ×2 (08:43→17:50)
[2020-06-27] MEDS: ERGOCALCIFEROL 50000UNITS CAPSULE PO SCH (08:43)
[2020-06-27] MEDS: DOCUSATE SODIUM SUGAR FREE 100MG/10ML UDC NG SCH (08:43)
[2020-06-27] MEDS: ENOXAPARIN 100MG/ML SYR SUBCUT SCH ×2 (08:44→20:53)
[2020-06-27] MEDS: AMLODIPINE 10MG TABLET PO SCH (08:44)
[2020-06-27] MEDS: FLUCONAZOLE 40 MG/ML ORAL SYRINGE NG SCH (08:47)
[2020-06-27] MEDS ORDERED: CHOLECALCIFEROL (D3) 1000 UNIT TABLET PO SCH (09:00)
[2020-06-27] MEDS: INSULIN GLARGINE UD 100 UNITS/ML SYR SUBCUT SCH ×2 (10:41→22:36)
[2020-06-27] MEDS: FAMOTIDINE 20MG TABLET PO SCH (20:53)
[2020-06-28] VITALS (96 sets, daily range): BP systolic 84–152; BP diastolic 47–75
[2020-06-28] MEDS: BLOOD SUGAR DIAGNOSTIC STRIP TEST SCH ×5 (00:28→23:00)
[2020-06-28] MEDS: METOCLOPRAMIDE HCL 10MG/2ML VIAL IV SCH ×6 (00:43→23:01)
[2020-06-28] MEDS: IPRATROPIUM/ALBUTEROL 0.5-3(2.5)MG/3ML NEB HHN SCH ×6 (00:48→20:56)
[2020-06-28] MEDS: NOREPINEPHRINE 32 MG in DEXT 5% WATER 218 ML IV PRN (01:02)
[2020-06-28] MEDS: FENTANYL CITRATE/PF 2,500 MCG in DEXT 5% WATER 200 ML IV PRN ×3 (02:32→17:48)
[2020-06-28] MEDS: MIDAZOLAM HCL 100 MG in DEXT 5% WATER 100 ML IV PRN ×3 (02:32→18:19)
[2020-06-28] MEDS: ACETAMINOPHEN 650MG/20.3ML UDC PO PRN ×2 (04:30→16:12)
[2020-06-28] MEDS: CEFEPIME 1,000 MG in DEXTROSE 5% WATER 50 ML IV SCH ×2 (05:13→17:47)
[2020-06-28 05:47] LABS: CHLORIDE 103 mEq/L (98-107)
[2020-06-28 05:55] LABS: HEMATOCRIT. 28.7 % (36.0-48.0); HEMOGLOBIN. 9.3 g/dL (12.0-16.0); MEAN CORPUSCULAR HEMOGLOBIN 29.2 pg (28.0-32.0); MEAN CORPUSCULAR VOLUME 90.1 fL (81.0-99.0); MEAN PLATELET VOLUME 11.1 fl (7.4-10.4); PLATELET 202 x1000/uL (130-400); RED BLOOD CELL COUNT 3.19 mill/uL (4.2-5.4); RED CELL DISTRIBUTION WIDTH 15.1 % (11.6-14.6)
[2020-06-28] MEDS: INSULIN LISPRO 100 UNITS/ML SUBCUT SCH ×5 (06:00→23:00)
[2020-06-28] MEDS: AMLODIPINE 10MG TABLET PO SCH (09:00)
[2020-06-28] MEDS: POTASSIUM-SODIUM PHOSPHATE POWDER PACKET PO SCH ×2 (09:27→16:13)
[2020-06-28] MEDS: DOCUSATE SODIUM SUGAR FREE 100MG/10ML UDC NG SCH (09:27)
[2020-06-28] MEDS: FLUCONAZOLE 40 MG/ML ORAL SYRINGE NG SCH (09:28)
[2020-06-28] MEDS: ENOXAPARIN 100MG/ML SYR SUBCUT SCH ×2 (09:28→20:49)
[2020-06-28 10:13] LABS: NUCLEATED RED BLOOD CELLS 1 /100 WBC; PLATELET ESTIMATE NORMAL
[2020-06-28] MEDS: INSULIN GLARGINE UD 100 UNITS/ML SYR SUBCUT SCH ×2 (11:00→23:00)
[2020-06-28 15:43] LABS: BG BASE EXCESS 3.8 mmol/L (-2.0-2.0); BG CARBOXYHEMOGLOBIN 0.2 % (0.5-1.5); BG DEOXYHEMOGLOBIN 6.4 % (0.0-5.0); BG FRACTION INSPIRED OXYGEN 100; BG HCO3 ACT 32.3 mmol/L (22.0-26.0); BG METHEMOGLOBIN 0.3 % (0.0-1.5); BG OXYGEN SATURATION 93.6 % (92.0-98.5); BG OXYHEMOGLOBIN 93.1 % (94.0-97.0); BG PCO2 72.4 mmHg (35.0-45.0); BG PH 7.267 (7.350-7.450); BG PO2 74.3 mmHg (75.0-100.0); BG SAMPLE SITE RIGHT RADIAL; BG TOTAL HEMOGLOBIN 10.3 g/dL (12.0-18.0); BG VENT MODE VENT - PRVC
[2020-06-28] MEDS: ACETAMINOPHEN 325MG TABLET PO PRN (20:48)
[2020-06-28] MEDS: FAMOTIDINE 20MG TABLET PO SCH (20:48)
[2020-06-29] VITALS (96 sets, daily range): BP systolic 93–176; BP diastolic 47–98
[2020-06-29] MEDS: FENTANYL CITRATE/PF 2,500 MCG in DEXT 5% WATER 200 ML IV PRN ×4 (00:30→23:10)
[2020-06-29] MEDS: MIDAZOLAM HCL 100 MG in DEXT 5% WATER 100 ML IV PRN ×3 (00:31→17:17)
[2020-06-29] MEDS: IPRATROPIUM/ALBUTEROL 0.5-3(2.5)MG/3ML NEB HHN SCH ×6 (00:41→20:16)
[2020-06-29] MEDS: CEFEPIME 1,000 MG in DEXTROSE 5% WATER 50 ML IV SCH ×2 (05:09→20:32)
[2020-06-29] MEDS: METOCLOPRAMIDE HCL 10MG/2ML VIAL IV SCH ×4 (05:09→23:09)
[2020-06-29] MEDS: BLOOD SUGAR DIAGNOSTIC STRIP TEST SCH ×4 (05:09→23:09)
[2020-06-29 05:52] LABS: CHLORIDE 105 mEq/L (98-107)
[2020-06-29 05:58] LABS: HEMATOCRIT. 27.1 % (36.0-48.0); HEMOGLOBIN. 8.9 g/dL (12.0-16.0); MEAN CORPUSCULAR HEMOGLOBIN 29.5 pg (28.0-32.0); MEAN CORPUSCULAR VOLUME 90.3 fL (81.0-99.0); MEAN PLATELET VOLUME 10.2 fl (7.4-10.4); PLATELET 195 x1000/uL (130-400); RED CELL DISTRIBUTION WIDTH 15.3 % (11.6-14.6)
[2020-06-29] MEDS: INSULIN LISPRO 100 UNITS/ML SUBCUT SCH ×4 (06:00→23:09)
[2020-06-29] MEDS: ENOXAPARIN 100MG/ML SYR SUBCUT SCH ×2 (08:38→20:33)
[2020-06-29] MEDS: AMLODIPINE 10MG TABLET PO SCH (08:38)
[2020-06-29] MEDS: POTASSIUM-SODIUM PHOSPHATE POWDER PACKET PO SCH ×2 (08:38→15:49)
[2020-06-29] MEDS: FLUCONAZOLE 40 MG/ML ORAL SYRINGE NG SCH (08:46)
[2020-06-29] MEDS: DOCUSATE SODIUM SUGAR FREE 100MG/10ML UDC NG SCH (08:46)
[2020-06-29 09:01] LABS: BG BASE EXCESS 5.7 mmol/L (-2.0-2.0); BG CARBOXYHEMOGLOBIN 0.6 % (0.5-1.5); BG DEOXYHEMOGLOBIN 8.4 % (0.0-5.0); BG FRACTION INSPIRED OXYGEN 100; BG HCO3 ACT 31.6 mmol/L (22.0-26.0); BG METHEMOGLOBIN 0.3 % (0.0-1.5); BG OXYGEN SATURATION 91.5 % (92.0-98.5); BG OXYHEMOGLOBIN 90.7 % (94.0-97.0); BG PCO2 53.2 mmHg (35.0-45.0); BG PH 7.391 (7.350-7.450); BG PO2 61.3 mmHg (75.0-100.0); BG SAMPLE SITE RIGHT RADIAL; BG TOTAL HEMOGLOBIN 9.4 g/dL (12.0-18.0); BG TOTAL RESPIRATORY RATE 34 b/min; BG VENT MODE VENT- PRVC
[2020-06-29] MEDS: INSULIN GLARGINE UD 100 UNITS/ML SYR SUBCUT SCH ×2 (12:03→21:49)
[2020-06-29] MEDS: METRONIDAZOLE 500MG TABLET PO SCH ×2 (15:49→21:49)
[2020-06-29 16:47] LABS: PHOSPHORUS 3.3 mg/dL (2.5-4.9)
[2020-06-29] MEDS: ACETAMINOPHEN 650MG/20.3ML UDC PO PRN ×2 (17:14→20:34)
[2020-06-29] MEDS: FAMOTIDINE 20MG TABLET PO SCH (20:33)
[2020-06-29 21:35] LABS: PLATELET ESTIMATE NORMAL
[2020-06-30] VITALS (98 sets, daily range): BP systolic 96–156; BP diastolic 45–83
[2020-06-30] MEDS: IPRATROPIUM/ALBUTEROL 0.5-3(2.5)MG/3ML NEB HHN SCH ×6 (01:00→20:09)
[2020-06-30] MEDS: MIDAZOLAM HCL 100 MG in DEXT 5% WATER 100 ML IV PRN ×4 (01:06→19:57)
[2020-06-30] MEDS: METOCLOPRAMIDE HCL 10MG/2ML VIAL IV SCH ×4 (05:13→23:09)
[2020-06-30] MEDS: INSULIN LISPRO 100 UNITS/ML SUBCUT SCH ×4 (05:13→23:10)
[2020-06-30] MEDS: BLOOD SUGAR DIAGNOSTIC STRIP TEST SCH ×4 (05:13→23:09)
[2020-06-30] MEDS: METRONIDAZOLE 500MG TABLET PO SCH ×3 (05:13→21:48)
[2020-06-30] MEDS: CEFEPIME 1,000 MG in DEXTROSE 5% WATER 50 ML IV SCH ×2 (06:21→18:25)
[2020-06-30] MEDS: PROPOFOL 10MG/ML 100ML 100 ML IV PRN ×2 (07:28→18:25)
[2020-06-30] MEDS: FENTANYL CITRATE/PF 2,500 MCG in DEXT 5% WATER 200 ML IV PRN ×2 (07:34→13:48)
[2020-06-30] MEDS: POTASSIUM-SODIUM PHOSPHATE POWDER PACKET PO SCH (08:08)
[2020-06-30] MEDS: ACETAMINOPHEN 650MG/20.3ML UDC PO PRN ×3 (08:08→20:22)
[2020-06-30] MEDS: AMLODIPINE 10MG TABLET PO SCH (08:10)
[2020-06-30] MEDS: ENOXAPARIN 100MG/ML SYR SUBCUT SCH (08:11)
[2020-06-30] MEDS: DOCUSATE SODIUM SUGAR FREE 100MG/10ML UDC NG SCH (08:17)
[2020-06-30 09:44] LABS: CHLORIDE 105 mEq/L (98-107); HEMATOCRIT. 28.1 % (36.0-48.0); HEMOGLOBIN. 8.9 g/dL (12.0-16.0); MEAN CORPUSCULAR HEMOGLOBIN 28.8 pg (28.0-32.0); MEAN CORPUSCULAR VOLUME 91.3 fL (81.0-99.0); MEAN PLATELET VOLUME 10.5 fl (7.4-10.4); PLATELET 208 x1000/uL (130-400); RED BLOOD CELL COUNT 3.08 mill/uL (4.2-5.4)
[2020-06-30 10:35] LABS: BG BASE EXCESS 3.8 mmol/L (-2.0-2.0); BG CARBOXYHEMOGLOBIN 0.1 % (0.5-1.5); BG HCO3 ACT 31.1 mmol/L (22.0-26.0); BG METHEMOGLOBIN 0.3 % (0.0-1.5); BG OXYHEMOGLOBIN 87.6 % (94.0-97.0); BG PH 7.318 (7.350-7.450); BG PO2 58.1 mmHg (75.0-100.0); BG SAMPLE SITE RIGHT RADIAL; BG TOTAL HEMOGLOBIN 10.1 g/dL (12.0-18.0); BG VENT MODE VENT- PRVC
[2020-06-30] MEDS: INSULIN GLARGINE UD 100 UNITS/ML SYR SUBCUT SCH ×2 (11:55→21:49)
[2020-06-30 13:43] LABS: NUCLEATED RED BLOOD CELLS 1 /100 WBC; PLATELET ESTIMATE NORMAL
[2020-06-30] MEDS: FAMOTIDINE 20MG TABLET PO SCH (20:21)
[2020-07-01] VITALS (47 sets, daily range): BP systolic 103–117; BP diastolic 42–67
[2020-07-01] MEDS: FENTANYL CITRATE/PF 2,500 MCG in DEXT 5% WATER 200 ML IV PRN ×4 (00:18→22:47)
[2020-07-01] MEDS: IPRATROPIUM/ALBUTEROL 0.5-3(2.5)MG/3ML NEB HHN SCH ×6 (00:22→20:48)
[2020-07-01] MEDS: MIDAZOLAM HCL 100 MG in DEXT 5% WATER 100 ML IV PRN ×4 (00:46→17:42)
[2020-07-01] MEDS: PROPOFOL 10MG/ML 100ML 100 ML IV PRN ×4 (03:58→21:17)
[2020-07-01] MEDS: CEFEPIME 1,000 MG in DEXTROSE 5% WATER 50 ML IV SCH ×2 (05:08→18:01)
[2020-07-01] MEDS: METOCLOPRAMIDE HCL 10MG/2ML VIAL IV SCH ×3 (05:08→18:01)
[2020-07-01] MEDS: METRONIDAZOLE 500MG TABLET PO SCH ×3 (05:09→21:17)
[2020-07-01] MEDS: BLOOD SUGAR DIAGNOSTIC STRIP TEST SCH ×3 (05:09→18:02)
[2020-07-01] MEDS: INSULIN LISPRO 100 UNITS/ML SUBCUT SCH ×3 (05:14→18:00)
[2020-07-01] MEDS: ACETAMINOPHEN 650MG/20.3ML UDC PO PRN ×2 (05:17→18:46)
[2020-07-01 05:47] LABS: HEMATOCRIT. 28.6 % (36.0-48.0); HEMOGLOBIN. 9.2 g/dL (12.0-16.0); MEAN CORPUSCULAR HEMOGLOBIN 29.2 pg (28.0-32.0); MEAN CORPUSCULAR VOLUME 90.7 fL (81.0-99.0); PLATELET 229 x1000/uL (130-400); RED BLOOD CELL COUNT 3.16 mill/uL (4.2-5.4); RED CELL DISTRIBUTION WIDTH 15.7 % (11.6-14.6)
[2020-07-01 06:19] LABS: CHLORIDE 103 mEq/L (98-107)
[2020-07-01] MEDS: AMLODIPINE 10MG TABLET PO SCH (09:00)
[2020-07-01] MEDS ORDERED: PROPOFOL 10MG/ML 100ML 100 ML IV PRN ×2 (09:45→15:00)
[2020-07-01] MEDS: DOCUSATE SODIUM SUGAR FREE 100MG/10ML UDC NG SCH (10:18)
[2020-07-01] MEDS: INSULIN GLARGINE UD 100 UNITS/ML SYR SUBCUT SCH ×2 (10:20→22:49)
[2020-07-01 14:07] LABS: PLATELET ESTIMATE NORMAL
[2020-07-01] MEDS: FAMOTIDINE 20MG TABLET PO SCH (21:17)
[2020-07-01] MEDS: MIDAZOLAM HCL 100 MG in SODIUM CHLORIDE 0.9% 80 ML IV PRN (22:49)
[2020-07-02] VITALS (96 sets, daily range): BP systolic 90–126; BP diastolic 41–62
[2020-07-02] MEDS: IPRATROPIUM/ALBUTEROL 0.5-3(2.5)MG/3ML NEB HHN SCH ×6 (00:07→20:38)
[2020-07-02] MEDS: METOCLOPRAMIDE HCL 10MG/2ML VIAL IV SCH ×5 (00:11→23:49)
[2020-07-02] MEDS: BLOOD SUGAR DIAGNOSTIC STRIP TEST SCH ×5 (00:12→23:49)
[2020-07-02] MEDS: PROPOFOL 10MG/ML 100ML 100 ML IV PRN ×5 (01:18→23:39)
[2020-07-02] MEDS: ACETAMINOPHEN 325MG TABLET PO PRN (02:31)
[2020-07-02] MEDS: MIDAZOLAM HCL 100 MG in SODIUM CHLORIDE 0.9% 80 ML IV PRN ×3 (03:39→13:59)
[2020-07-02] MEDS: INSULIN LISPRO 100 UNITS/ML SUBCUT SCH ×5 (06:00→23:49)
[2020-07-02] MEDS: METRONIDAZOLE 500MG TABLET PO SCH ×3 (06:44→21:15)
[2020-07-02] MEDS: FENTANYL CITRATE/PF 2,500 MCG in SODIUM CHLORIDE 0.9% 200 ML IV PRN ×3 (06:44→21:40)
[2020-07-02] MEDS: CEFEPIME 1,000 MG in DEXTROSE 5% WATER 50 ML IV SCH ×2 (07:55→17:53)
[2020-07-02] MEDS: AMLODIPINE 10MG TABLET PO SCH (09:21)
[2020-07-02] MEDS: DOCUSATE SODIUM SUGAR FREE 100MG/10ML UDC NG SCH (09:21)
[2020-07-02] MEDS: INSULIN GLARGINE UD 100 UNITS/ML SYR SUBCUT SCH ×2 (09:26→22:00)
[2020-07-02 11:23] LABS: BG BASE EXCESS 4.1 mmol/L (-2.0-2.0); BG CARBOXYHEMOGLOBIN 0.5 % (0.5-1.5); BG FRACTION INSPIRED OXYGEN 100; BG HCO3 ACT 31.5 mmol/L (22.0-26.0); BG METHEMOGLOBIN 0.2 % (0.0-1.5); BG OXYGEN SATURATION 80.9 % (92.0-98.5); BG OXYHEMOGLOBIN 80.3 % (94.0-97.0); BG PCO2 65.2 mmHg (35.0-45.0); BG PH 7.302 (7.350-7.450); BG PO2 48.5 mmHg (75.0-100.0); BG SAMPLE SITE RIGHT RADIAL; BG TOTAL HEMOGLOBIN 9.2 g/dL (12.0-18.0); BG VENT MODE PRVC
[2020-07-02] MEDS ORDERED: DIATR MEGLU/DIATRIZOATE SOLN 30ML PO SCH (12:15)
[2020-07-02 12:22] LABS: CHLORIDE 102 mEq/L (98-107)
[2020-07-02 12:34] LABS: HEMOGLOBIN. 8.4 g/dL (12.0-16.0); MEAN CORPUSCULAR HEMOGLOBIN 29.6 pg (28.0-32.0); MEAN CORPUSCULAR VOLUME 91.2 fL (81.0-99.0); MEAN PLATELET VOLUME 10.1 fl (7.4-10.4); PLATELET 235 x1000/uL (130-400); RED BLOOD CELL COUNT 2.85 mill/uL (4.2-5.4); RED CELL DISTRIBUTION WIDTH 15.9 % (11.6-14.6)
[2020-07-02 14:20] LABS: NUCLEATED RED BLOOD CELLS 1 /100 WBC
[2020-07-02 14:21] LABS: PLATELET ESTIMATE NORMAL
[2020-07-02 16:06] LABS: CLARITY URINE CLOUDY (CLEAR); COLOR URINE YELLOW (YELLOW); KETONES URINE NEGATIVE (NEGATIVE); LEUKOCYTE ESTERASE URINE TRACE (NEGATIVE); NITRITE URINE NEGATIVE (NEGATIVE); OCCULT BLOOD URINE 2+ (NEGATIVE); PROTEIN URINE 1+ (NEGATIVE); SPECIFIC GRAVITY URINE 1.022 (1.005-1.030)
[2020-07-02] MEDS: MIDAZOLAM HCL 100 MG in DEXT 5% WATER 80 ML IV PRN (19:42)
[2020-07-02] MEDS: ACETAMINOPHEN 650MG/20.3ML UDC PO PRN (21:14)
[2020-07-02] MEDS: FAMOTIDINE 20MG TABLET PO SCH (21:14)
[2020-07-03] VITALS (92 sets, daily range): BP systolic 85–136; BP diastolic 26–70
[2020-07-03] MEDS: IPRATROPIUM/ALBUTEROL 0.5-3(2.5)MG/3ML NEB HHN SCH ×6 (00:02→20:11)
[2020-07-03] MEDS: MIDAZOLAM HCL 100 MG in DEXT 5% WATER 80 ML IV PRN ×4 (00:46→19:55)
[2020-07-03] MEDS: PROPOFOL 10MG/ML 100ML 100 ML IV PRN ×6 (04:15→21:26)
[2020-07-03] MEDS: METOCLOPRAMIDE HCL 10MG/2ML VIAL IV SCH ×3 (05:50→17:34)
[2020-07-03] MEDS: CEFEPIME 1,000 MG in DEXTROSE 5% WATER 50 ML IV SCH (05:50)
[2020-07-03] MEDS: FENTANYL CITRATE/PF 2,500 MCG in SODIUM CHLORIDE 0.9% 200 ML IV PRN ×3 (05:51→19:56)
[2020-07-03] MEDS: BLOOD SUGAR DIAGNOSTIC STRIP TEST SCH ×3 (05:51→17:28)
[2020-07-03] MEDS: METRONIDAZOLE 500MG TABLET PO SCH (05:51)
[2020-07-03] MEDS: INSULIN LISPRO 100 UNITS/ML SUBCUT SCH ×3 (05:51→17:28)
[2020-07-03 05:56] LABS: HEMATOCRIT. 25.1 % (36.0-48.0); MEAN CORPUSCULAR HEMOGLOBIN 29.2 pg (28.0-32.0); MEAN CORPUSCULAR VOLUME 91.7 fL (81.0-99.0); MEAN PLATELET VOLUME 9.8 fl (7.4-10.4); PLATELET 256 x1000/uL (130-400); RED BLOOD CELL COUNT 2.74 mill/uL (4.2-5.4); RED CELL DISTRIBUTION WIDTH 16.2 % (11.6-14.6)
[2020-07-03 05:59] LABS: CHLORIDE 101 mEq/L (98-107)
[2020-07-03 06:07] LABS: PHOSPHORUS 4.6 mg/dL (2.5-4.9)
[2020-07-03] MEDS: AMLODIPINE 10MG TABLET PO SCH (09:00)
[2020-07-03 09:38] LABS: BG CARBOXYHEMOGLOBIN 0.4 % (0.5-1.5); BG DEOXYHEMOGLOBIN 15.1 % (0.0-5.0); BG FRACTION INSPIRED OXYGEN 100; BG HCO3 ACT 27.9 mmol/L (22.0-26.0); BG METHEMOGLOBIN 0.3 % (0.0-1.5); BG OXYGEN SATURATION 84.8 % (92.0-98.5); BG OXYHEMOGLOBIN 84.2 % (94.0-97.0); BG PCO2 56.7 mmHg (35.0-45.0); BG PO2 49.9 mmHg (75.0-100.0); BG SAMPLE SITE RIGHT RADIAL; BG TOTAL HEMOGLOBIN 9.4 g/dL (12.0-18.0); BG VENT MODE VENT - AC/PRVC
[2020-07-03] MEDS: INSULIN GLARGINE UD 100 UNITS/ML SYR SUBCUT SCH (10:00)
[2020-07-03] MEDS: DOCUSATE SODIUM SUGAR FREE 100MG/10ML UDC NG SCH (10:10)
[2020-07-03] MEDS ORDERED: DEXTROSE 50% WATER 50ML SYRINGE IV NR (10:30)
[2020-07-03] MEDS ORDERED: INSULIN REGULAR (HUMULIN R) 300UNITS/3ML VIAL IV NR (10:30)
[2020-07-03] MEDS ORDERED: CALCIUM CHLORIDE 1,000 MG in DEXT 5% WATER 90 ML IV NR (11:30)
[2020-07-03 15:01] LABS: PLATELET ESTIMATE NORMAL
[2020-07-03] MEDS: FLUCONAZOLE 400MG/200ML BAG 200 ML IV SCH (17:34)
[2020-07-03] MEDS: MEROPENEM 1,000 MG in SODIUM CHLORIDE 0.9% 100 ML IV SCH (17:34)
[2020-07-03] MEDS: FAMOTIDINE 20MG TABLET PO SCH (21:07)
[2020-07-03] MEDS: ACETAMINOPHEN 650MG/20.3ML UDC PO PRN (21:08)
[2020-07-03] MEDS: LACTULOSE 20G/30ML UDC PO PRN (21:25)
[2020-07-04] VITALS (100 sets, daily range): BP systolic 77–160; BP diastolic 20–79
[2020-07-04] MEDS: IPRATROPIUM/ALBUTEROL 0.5-3(2.5)MG/3ML NEB HHN SCH ×6 (00:08→20:37)
[2020-07-04] MEDS: BLOOD SUGAR DIAGNOSTIC STRIP TEST SCH ×5 (00:45→23:39)
[2020-07-04] MEDS: METOCLOPRAMIDE HCL 10MG/2ML VIAL IV SCH ×4 (00:46→17:12)
[2020-07-04] MEDS: INSULIN GLARGINE UD 100 UNITS/ML SYR SUBCUT SCH ×3 (00:46→22:00)
[2020-07-04] MEDS: INSULIN LISPRO 100 UNITS/ML SUBCUT SCH ×5 (00:55→23:39)
[2020-07-04] MEDS: PROPOFOL 10MG/ML 100ML 100 ML IV PRN ×7 (00:55→22:06)
[2020-07-04] MEDS: MEROPENEM 1,000 MG in SODIUM CHLORIDE 0.9% 100 ML IV SCH ×3 (00:57→17:12)
[2020-07-04] MEDS: ACETAMINOPHEN 650MG/20.3ML UDC PO PRN (00:57)
[2020-07-04] MEDS: MIDAZOLAM HCL 100 MG in DEXT 5% WATER 80 ML IV PRN ×3 (02:34→17:00)
[2020-07-04] MEDS: FENTANYL CITRATE/PF 2,500 MCG in SODIUM CHLORIDE 0.9% 200 ML IV PRN ×3 (02:37→17:01)
[2020-07-04 06:07] LABS: HEMATOCRIT. 27.4 % (36.0-48.0); HEMOGLOBIN. 8.6 g/dL (12.0-16.0); MEAN CORPUSCULAR VOLUME 92.2 fL (81.0-99.0); MEAN PLATELET VOLUME 9.7 fl (7.4-10.4); PLATELET 316 x1000/uL (130-400); RED BLOOD CELL COUNT 2.97 mill/uL (4.2-5.4); RED CELL DISTRIBUTION WIDTH 16.5 % (11.6-14.6)
[2020-07-04 06:12] LABS: CHLORIDE 103 mEq/L (98-107)
[2020-07-04 06:21] LABS: CREATINE KINASE 321 IU/L (26-192)
[2020-07-04] MEDS: AMLODIPINE 10MG TABLET PO SCH (08:00)
[2020-07-04] MEDS: DOCUSATE SODIUM SUGAR FREE 100MG/10ML UDC NG SCH (08:00)
[2020-07-04] MEDS: ERGOCALCIFEROL 50000UNITS CAPSULE PO SCH (08:00)
[2020-07-04] MEDS ORDERED: DEXTROSE 50% WATER 50ML SYRINGE IV NR (09:30)
[2020-07-04] MEDS ORDERED: SODIUM POLYSTYRENE SULFONATE 15 G/60 ML BOT PO ONE (09:30)
[2020-07-04] MEDS ORDERED: PROPOFOL 10MG/ML 100ML 100 ML IV PRN (09:30)
[2020-07-04] MEDS ORDERED: INSULIN REGULAR (HUMULIN R) 300UNITS/3ML VIAL IV NR (09:30)
[2020-07-04] MEDS: PHENYLEPHRINE 100 MG in DEXT 5% WATER 240 ML IV PRN (09:43)
[2020-07-04] MEDS ORDERED: SODIUM POLYSTYRENE SULFONATE 15 G/60 ML BOT PO SCH (10:00)
[2020-07-04 10:48] LABS: BG BASE EXCESS 1.2 mmol/L (-2.0-2.0); BG CARBOXYHEMOGLOBIN 1.7 % (0.5-1.5); BG DEOXYHEMOGLOBIN 16.5 % (0.0-5.0); BG FRACTION INSPIRED OXYGEN 100; BG HCO3 ACT 29.6 mmol/L (22.0-26.0); BG METHEMOGLOBIN 0.3 % (0.0-1.5); BG OXYGEN SATURATION 83.2 % (92.0-98.5); BG OXYHEMOGLOBIN 81.5 % (94.0-97.0); BG PH 7.238 (7.350-7.450); BG SAMPLE SITE RIGHT RADIAL; BG TOTAL HEMOGLOBIN 9.3 g/dL (12.0-18.0); BG VENT MODE /PRVC
[2020-07-04 12:02] LABS: NUCLEATED RED BLOOD CELLS 2 /100 WBC; PLATELET ESTIMATE NORMAL
[2020-07-04] MEDS: FLUCONAZOLE 400MG/200ML BAG 200 ML IV SCH (17:12)
[2020-07-04] MEDS: FAMOTIDINE 20MG TABLET PO SCH (21:25)
[2020-07-05] VITALS (97 sets, daily range): BP systolic 53–141; BP diastolic 31–84
[2020-07-05] MEDS: METOCLOPRAMIDE HCL 10MG/2ML VIAL IV SCH ×5 (00:05→23:28)
[2020-07-05] MEDS: PHENYLEPHRINE 100 MG in DEXT 5% WATER 240 ML IV PRN ×2 (00:06→12:50)
[2020-07-05] MEDS: FENTANYL CITRATE/PF 2,500 MCG in SODIUM CHLORIDE 0.9% 200 ML IV PRN ×4 (00:06→23:47)
[2020-07-05] MEDS: MIDAZOLAM HCL 100 MG in DEXT 5% WATER 80 ML IV PRN ×4 (00:06→19:50)
[2020-07-05] MEDS: IPRATROPIUM/ALBUTEROL 0.5-3(2.5)MG/3ML NEB HHN SCH ×6 (00:54→20:20)
[2020-07-05] MEDS: MEROPENEM 1,000 MG in SODIUM CHLORIDE 0.9% 100 ML IV SCH ×3 (01:40→17:55)
[2020-07-05] MEDS: PROPOFOL 10MG/ML 100ML 100 ML IV PRN ×7 (01:41→23:03)
[2020-07-05] MEDS: BLOOD SUGAR DIAGNOSTIC STRIP TEST SCH ×4 (05:27→23:29)
[2020-07-05] MEDS: INSULIN LISPRO 100 UNITS/ML SUBCUT SCH ×4 (05:27→23:29)
[2020-07-05] MEDS: DOCUSATE SODIUM SUGAR FREE 100MG/10ML UDC NG SCH (07:54)
[2020-07-05] MEDS: AMLODIPINE 10MG TABLET PO SCH (07:55)
[2020-07-05 08:38] LABS: BG BASE EXCESS 0.6 mmol/L (-2.0-2.0); BG CARBOXYHEMOGLOBIN 0.7 % (0.5-1.5); BG HCO3 ACT 28.5 mmol/L (22.0-26.0); BG METHEMOGLOBIN 0.3 % (0.0-1.5); BG OXYGEN SATURATION 78.8 % (92.0-98.5); BG PCO2 64.3 mmHg (35.0-45.0); BG PH 7.264 (7.350-7.450); BG PO2 44.4 mmHg (75.0-100.0); BG SAMPLE SITE RIGHT RADIAL; BG TOTAL HEMOGLOBIN 9.9 g/dL (12.0-18.0); BG VENT MODE VENT- PRVC
[2020-07-05 09:55] LABS: HEMOGLOBIN. 9.2 g/dL (12.0-16.0); MEAN CORPUSCULAR HEMOGLOBIN 28.4 pg (28.0-32.0); MEAN CORPUSCULAR VOLUME 92.8 fL (81.0-99.0); PLATELET 359 x1000/uL (130-400); RED BLOOD CELL COUNT 3.24 mill/uL (4.2-5.4)
[2020-07-05] MEDS: INSULIN GLARGINE UD 100 UNITS/ML SYR SUBCUT SCH (10:00)
[2020-07-05 10:03] LABS: CHLORIDE 104 mEq/L (98-107)
[2020-07-05] MEDS ORDERED: DEXTROSE 50% WATER 50ML SYRINGE IV NR (11:00)
[2020-07-05] MEDS ORDERED: INSULIN REGULAR (HUMULIN R) 300UNITS/3ML VIAL IV NR (11:00)
[2020-07-05] MEDS ORDERED: SODIUM POLYSTYRENE SULFONATE 15 G/60 ML BOT PO NR (11:30)
[2020-07-05 16:33] LABS: NUCLEATED RED BLOOD CELLS 10 /100 WBC; PLATELET ESTIMATE NORMAL
[2020-07-05] MEDS: FLUCONAZOLE 400MG/200ML BAG 200 ML IV SCH (17:55)
[2020-07-05] MEDS: FAMOTIDINE 20MG TABLET PO SCH (20:59)
[2020-07-06] VITALS (97 sets, daily range): BP systolic 90–128; BP diastolic 42–71
[2020-07-06] MEDS: IPRATROPIUM/ALBUTEROL 0.5-3(2.5)MG/3ML NEB HHN SCH ×6 (00:16→20:45)
[2020-07-06] MEDS: MEROPENEM 1,000 MG in SODIUM CHLORIDE 0.9% 100 ML IV SCH ×3 (02:03→19:22)
[2020-07-06] MEDS: PROPOFOL 10MG/ML 100ML 100 ML IV PRN ×7 (02:40→23:32)
[2020-07-06] MEDS: MIDAZOLAM HCL 100 MG in DEXT 5% WATER 80 ML IV PRN ×3 (03:23→17:49)
[2020-07-06] MEDS: INSULIN LISPRO 100 UNITS/ML SUBCUT SCH ×3 (05:31→18:00)
[2020-07-06] MEDS: BLOOD SUGAR DIAGNOSTIC STRIP TEST SCH ×3 (05:31→18:46)
[2020-07-06] MEDS: METOCLOPRAMIDE HCL 10MG/2ML VIAL IV SCH ×3 (05:31→18:48)
[2020-07-06 06:35] LABS: HEMATOCRIT. 28.3 % (36.0-48.0); HEMOGLOBIN. 8.9 g/dL (12.0-16.0); MEAN CORPUSCULAR VOLUME 92.1 fL (81.0-99.0); MEAN PLATELET VOLUME 9.1 fl (7.4-10.4); PLATELET 360 x1000/uL (130-400); RED BLOOD CELL COUNT 3.07 mill/uL (4.2-5.4); RED CELL DISTRIBUTION WIDTH 16.9 % (11.6-14.6)
[2020-07-06 07:00] LABS: CHLORIDE 104 mEq/L (98-107)
[2020-07-06] MEDS: FENTANYL CITRATE/PF 2,500 MCG in SODIUM CHLORIDE 0.9% 200 ML IV PRN ×3 (07:40→22:11)
[2020-07-06] MEDS: PHENYLEPHRINE 100 MG in DEXT 5% WATER 240 ML IV PRN (08:21)
[2020-07-06] MEDS: AMLODIPINE 10MG TABLET PO SCH (09:00)
[2020-07-06] MEDS: ERGOCALCIFEROL 50000UNITS CAPSULE PO SCH (09:27)
[2020-07-06] MEDS: DOCUSATE SODIUM SUGAR FREE 100MG/10ML UDC NG SCH (09:27)
[2020-07-06 10:40] LABS: BG BASE EXCESS 3.6 mmol/L (-2.0-2.0); BG CARBOXYHEMOGLOBIN 0.9 % (0.5-1.5); BG DEOXYHEMOGLOBIN 23.8 % (0.0-5.0); BG FRACTION INSPIRED OXYGEN 100; BG HCO3 ACT 30.6 mmol/L (22.0-26.0); BG METHEMOGLOBIN 0.2 % (0.0-1.5); BG OXYGEN SATURATION 75.9 % (92.0-98.5); BG OXYHEMOGLOBIN 75.1 % (94.0-97.0); BG PCO2 60.5 mmHg (35.0-45.0); BG PH 7.322 (7.350-7.450); BG SAMPLE SITE RIGHT RADIAL; BG TOTAL HEMOGLOBIN 9.7 g/dL (12.0-18.0); BG TOTAL RESPIRATORY RATE 40 b/min; BG VENT MODE PRVC
[2020-07-06 15:03] LABS: NUCLEATED RED BLOOD CELLS 5 /100 WBC
[2020-07-06 15:04] LABS: PLATELET ESTIMATE NORMAL
[2020-07-06] MEDS ORDERED: PHENYLEPHRINE 200 MG in DEXT 5% WATER 480 ML IV PRN (19:30)
[2020-07-06] MEDS: FAMOTIDINE 20MG TABLET PO SCH (20:27)
[2020-07-06] MEDS: FLUCONAZOLE 400MG/200ML BAG 200 ML IV SCH (20:31)
[2020-07-07] VITALS (87 sets, daily range): BP systolic 52–204; BP diastolic 25–82
[2020-07-07] MEDS: BLOOD SUGAR DIAGNOSTIC STRIP TEST SCH ×4 (00:17→18:57)
[2020-07-07] MEDS: METOCLOPRAMIDE HCL 10MG/2ML VIAL IV SCH ×4 (00:17→19:06)
[2020-07-07] MEDS: INSULIN LISPRO 100 UNITS/ML SUBCUT SCH ×4 (00:17→18:00)
[2020-07-07] MEDS: MEROPENEM 1,000 MG in SODIUM CHLORIDE 0.9% 100 ML IV SCH ×3 (01:20→19:36)
[2020-07-07] MEDS: MIDAZOLAM HCL 100 MG in DEXT 5% WATER 80 ML IV PRN ×2 (01:49→07:47)
[2020-07-07] MEDS: PROPOFOL 10MG/ML 100ML 100 ML IV PRN ×7 (03:02→20:03)
[2020-07-07] MEDS: IPRATROPIUM/ALBUTEROL 0.5-3(2.5)MG/3ML NEB HHN SCH ×4 (03:44→16:06)
[2020-07-07 05:24] LABS: BASOPHILS % 1.1 % (0.0-2.0); EOSINOPHILS % 9.6 % (0.0-5.0); HEMATOCRIT. 30.1 % (36.0-48.0); HEMOGLOBIN. 9.2 g/dL (12.0-16.0); LYMPHOCYTES % 13.7 % (20.0-50.0); MEAN CORPUSCULAR HEMOGLOBIN 28.3 pg (28.0-32.0); MEAN CORPUSCULAR VOLUME 92.3 fL (81.0-99.0); MONOCYTES % 4.4 % (2.0-8.0); NEUTROPHILS % 71.2 % (40.0-76.0); PLATELET 353 x1000/uL (130-400); RED BLOOD CELL COUNT 3.27 mill/uL (4.2-5.4); RED CELL DISTRIBUTION WIDTH 17.2 % (11.6-14.6)
[2020-07-07 05:30] LABS: CHLORIDE 103 mEq/L (98-107)
[2020-07-07] MEDS: FENTANYL CITRATE/PF 2,500 MCG in SODIUM CHLORIDE 0.9% 200 ML IV PRN ×3 (05:51→20:04)
[2020-07-07] MEDS: AMLODIPINE 10MG TABLET PO SCH (09:00)
[2020-07-07] MEDS: DOCUSATE SODIUM SUGAR FREE 100MG/10ML UDC NG SCH (09:58)
[2020-07-07] MEDS ORDERED: MIDAZOLAM HCL 100 MG in DEXT 5% WATER 80 ML IV PRN (10:30)
[2020-07-07 11:00] LABS: BG BASE EXCESS 3.5 mmol/L (-2.0-2.0); BG CARBOXYHEMOGLOBIN 0.1 % (0.5-1.5); BG FRACTION INSPIRED OXYGEN 100; BG HCO3 ACT 30.3 mmol/L (22.0-26.0); BG METHEMOGLOBIN 0.2 % (0.0-1.5); BG OXYGEN SATURATION 77.9 % (92.0-98.5); BG OXYHEMOGLOBIN 77.7 % (94.0-97.0); BG PH 7.336 (7.350-7.450); BG PO2 46.1 mmHg (75.0-100.0); BG SAMPLE SITE RIGHT RADIAL; BG TOTAL HEMOGLOBIN 9.9 g/dL (12.0-18.0); BG TOTAL RESPIRATORY RATE 40 b/min; BG VENT MODE PRVC
[2020-07-07] MEDS: FLUCONAZOLE 400MG/200ML BAG 200 ML IV SCH (17:39)
[2020-07-07] MEDS: FAMOTIDINE 20MG TABLET PO SCH (20:04)
[2020-07-07] MEDS ORDERED: MIDAZOLAM HCL 100 MG in SODIUM CHLORIDE 0.9% 80 ML IV PRN (20:05)
== END 2020-07-07 21:45 | disposition expired | DRG 720 ==
LOC: ER 21:01 → MICUSO 06-13 00:43 → EDBD 06-13 00:43 → EDBEDREQ 06-13 00:44 → EDBEDREQTM 06-13 00:44 → EDBEDREQDT 06-13 00:44 → EDBEDREQSVC 06-13 03:37 → EDBEDREQTM 06-13 03:37 → ENRESERV 06-13 10:58 → EDBEDREQSVC 06-13 12:04 → MICUSO 06-15 21:46 → MICUNO 06-26 04:46
PROVIDERS: ADMIT Hospitalist; ATTEND Hospitalist
PROC: 5A09457 Assistance with Respiratory Ventilation, 24-96 Consecutive Hours, Continuous Positive Airway Pressure (ICD-10-PCS; 2020-06-12)
PROC: 5A1955Z Respiratory Ventilation, Greater than 96 Consecutive Hours (ICD-10-PCS; principal; 2020-06-16)
PROC: 0BH17EZ Insertion of Endotracheal Airway into Trachea, Via Natural or Artificial Opening (ICD-10-PCS; 2020-06-16)
PROC: B54MZZA Ultrasonography of Right Upper Extremity Veins, Guidance (ICD-10-PCS; 2020-06-17)
PROC: 05HY33Z Insertion of Infusion Device into Upper Vein, Percutaneous Approach (ICD-10-PCS; 2020-06-17)
PROC: XW13325 Transfusion of Convalescent Plasma (Nonautologous) into Peripheral Vein, Percutaneous Approach, New Technology Group 5 (ICD-10-PCS; 2020-07-02)
PROC: 5A12012 Performance of Cardiac Output, Single, Manual (ICD-10-PCS; 2020-07-07)
DX: A41.89 Other specified sepsis (principal); U07.1 COVID-19; E43 Unspecified severe protein-calorie malnutrition; R65.20 Severe sepsis without septic shock; Z66 Do not resuscitate; I10 Essential (primary) hypertension; K13.79 Other lesions of oral mucosa; D72.810 Lymphocytopenia; B37.49 Other urogenital candidiasis; D64.9 Anemia, unspecified; E66.9 Obesity, unspecified; E87.0 Hyperosmolality and hypernatremia; E11.65 Type 2 diabetes mellitus with hyperglycemia; I46.9 Cardiac arrest, cause unspecified; T38.0X5A Adverse effect of glucocorticoids and synthetic analogues, initial encounter; E87.2 Acidosis; E87.5 Hyperkalemia; Z78.1 Physical restraint status; Y92.89 Other specified places as the place of occurrence of the external cause; Z68.38 Body mass index [BMI] 38.0-38.9, adult; J12.82 Pneumonia due to coronavirus disease 2019; J96.01 Acute respiratory failure with hypoxia
CPT/HCPCS: 36415; 36600; 71045; 76937; 80048; 80053; 80076; 80202; 81003; 82375; 82550; 82728; 82805; 82962; 83036; 83605; 83615; 83735; 83880; 84100; 84145; 84443; 84478; 84484; 85025; 85027; 85379; 85384; 86140; 86850; 86900; 87070; 87106; 87635; 93005; 94003; 94640; 94660; 96365; 96366; 96367; 96368; 96372; 96375; 99291; A6261; C1725; C9803; J0456; J0692; J0696; J1100; J1450; J1650; J1815; J2185; J2250; J2370; J2405; J2543; J2704; J2765; J3010; J3370; J3475; J3490; J7040; J7050; J7060; J7070; P9017; Q9963; U0003; A4315